=== PATIENT | male | born 1955 | race Caucasian/White ===

== ENCOUNTER 2018-05-07 12:28 | Emergency (ER) | payer OTHER ==
[2018-05-07] MEDS: LIDOCAINE 1% (MDV) 10 ML INJ INFIL (13:19)
[2018-05-07] MEDS: CEFTRIAXONE 1 GM INJ IM (13:20)
== END 2018-05-07 14:08 | disposition home or self-care (01) ==
LOC: FTE 12:28
DX: J03.90 Acute tonsillitis, unspecified (principal)
CPT/HCPCS: 96372; 99284-25

== ENCOUNTER 2019-07-21 08:14 | Emergency (ER) | payer SELFPAY, OTHER ==
[2019-07-21] MEDS: HYDROmorphONE 2 MG/ML SYG IV ×2 (08:37→09:11)
[2019-07-21] MEDS: ONDANSETRON 4 MG INJ IV (08:40)
[2019-07-21] MEDS: PROPOFOL 200 MG INJ IV (09:48)
== END 2019-07-21 11:23 | disposition home or self-care (01) ==
LOC: E/R 08:14
DX: S43.004A Unspecified dislocation of right shoulder joint, initial encounter (principal); W18.39XA Other fall on same level, initial encounter; Y92.9 Unspecified place or not applicable
CPT/HCPCS: 23650; 73030-RT; 73060-RT; 73090-RT; 94770; 96374; 96375; 96376; 99285-25

== ENCOUNTER 2019-07-25 13:40 | Emergency (ER) | payer SELFPAY ==
[2019-07-25] MEDS: CEPHALEXIN 500 MG CAP PO (14:54)
[2019-07-25] MEDS: KETOROLAC 30 MG INJ IM (14:54)
[2019-07-25] MEDS: FLUCONAZOLE 150 MG TAB PO (15:08)
== END 2019-07-25 15:38 | disposition home or self-care (01) ==
LOC: FTE 13:40
DX: B35.6 Tinea cruris (principal)
CPT/HCPCS: 96372; 99284-25